=== PATIENT | female | born 1995 ===

== ENCOUNTER → 2017-04-26 | Outpatient (REF) | LOC: WSOH 11:17 → WSPT 12:45 | DX: Z02.1 Encounter for pre-employment examination (principal) ==

== ENCOUNTER → 2017-04-29 | Outpatient (REF) | LOC: WSOH 15:00 | DX: Z02.89 Encounter for other administrative examinations (principal) ==

== ENCOUNTER → 2017-04-29 | Outpatient (REF) | LOC: WSOH 16:28 | DX: Z02.89 Encounter for other administrative examinations (principal) ==

== ENCOUNTER → 2017-05-03 | Outpatient (REF) | LOC: WSOH 14:42 | DX: Z01.89 Encounter for other specified special examinations (principal) ==